=== PATIENT | male | born 1940 | race Caucasian/White ===

== ENCOUNTER 2024-02-20 11:19 | Outpatient (CLI) | payer MEDICARE, OTHER, SELFPAY ==
[2024-02-20 11:27] VITALS: BP 114/81; PULSE 67; RESP 20; TEMP 36.7; O2SAT 95
[2024-02-20 11:53] VITALS: PULSE 72; RESP 11; O2SAT 98
--- NOTE | 2024-02-20 11:58 | PDOC.PAIN ---
Date of service: 02/20/24 Time of Service: 11:58 Pain Managment Procedure Note Procedure Note Procedure Note: PROCEDURE NOTE Right Lumbar Medial Branch Blocks Date of Service: February 20, 2024 Patient: JB BARRERA Provider: Yolanda Shultz DO, MPH JB BARRERA has been [facility] to [facility] for lumbar medial branch blocks. 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 AJ was interviewed and the medical records were reviewed. There were no medical, pharmacologic, radiographic or other structural contraindications to attempting fluoroscopically guided local anesthetic lumbar medial branch blocks. Risks and potential side effects were discussed. I also discussed the potential benefit(s) of the procedure with JB, and voiced concerns were addressed. After JB was completely informed about the procedure, the printed consent form was signed. A standard time-out procedure was performed. JB was placed in the prone position on the fluoroscopy table. Automated blood pressure cuff and pulse oximeter were applied. The skin entry points for approaching the anatomic target points of the segmental medial branches of right L3,L4,L5 were identified with fluoroscopy and marked. The skin at the target site area was thoroughly prepared with Chlorhexadine. The skin was then draped. Next, a 25 gauge 3.5 spinal needle was placed under fluoroscopic guidance down on to the target point (the articular pillar) for each respective segmental medial branch. Position was confirmed in A/P and lateral views. Aspiration revealed no blood or clear fluid. Next, 0.25ml of omnipaque 240 was injected at each level. No contrast following a vascular or neural pattern was visualized under continuous fluoroscopy. Next, 0.25 ml of preservative-free 0.5% bupivicaine was injected at each level. There was no unusual discomfort expressed by JB. The needles were withdrawn without difficulty. (49 mls of Omnipaque was wasted) JB was observed and was without hemodynamic, neurologic, or allergic reactions.? Fluoroscopic images were digitally archived. Provacative testing using the Modified Lechuga's facet loading test- Right Side Directly before the block VAS (0-10) = 5/10 Five minutes after the block VAS (0-10) = 2/10 Percentage relief obtained with this diagnostic block 80% Any improved physical functioning directly after the blocks? Able to bend and move with much less pain. Follow up plans and appointments were discussed with JB. JB was instructed to keep careful note of how the usual pain was modified by these injections. Specifically, to keep a pain diary for the next 4 hours using a numeric pain scale of 0-10 and report these results. Post procedure instruction was given as documented in the nursing documentation and having met discharge criteria, the patient was [facility]. Based on the medial branches blocked today, if they patient has adequate relief and we are able to proceed to radiofrequency ablation, the treatment should result in the denervation of the right L4-L5 and L5-S1 facet joints. We would expect to denervate a total of 2 facets during the radiofrequency ablation. COMMENTS: No apparent complications. Post-procedure pain: VAS= 2/10 JB will call back with 0-4 hour post-procedure pain scores. I personally performed the entire procedure. YOLANDA SHULTZ DO, MPH ABPM&R-subspecialty board certification in Pain Medicine [facility] [facility]
[2024-02-20 11:59] VITALS: BP 118/80; PULSE 73; RESP 14; O2SAT 98
[2024-02-20] MEDS: Omnipaque 240 MG/ML 50 ML BTL IJ (12:08)
[2024-02-20] MEDS: Nerve Block Tray 1 EACH MC (12:09)
[2024-02-20] MEDS: Bupivacaine 0.5% Pres-Free 10 ML VIAL IJ (12:09)
--- NOTE | 2024-02-20 12:45 | DI.RAD_ITS ---
Exam(s) XR PAIN CLINIC LUMBAR SP 2V EXAM: XR PAIN CLINIC LUMBAR SP 2V CLINICAL HISTORY: Dx: Lumbar Spondylosis TECHNIQUE: 2D and realtime digital imaging was performed. CONTRAST MATERIAL: Refer to procedure report. COMPARISON: No exams were available for comparison FINDINGS: Fluoroscopy was provided for Dr. Shultz during the performance of a lumbar medial branch block. Rosalio rivera refer to the procedure report for complete details. Ka,r=6.92 mGy IMPRESSION: RADIATION DOSE DELIVERED: 0.0 0.0 0
== END 2024-02-20 11:20 | disposition home or self-care (01) ==
LOC: PC 11:21
PROVIDERS: PCP Thoracic Surgery (Cardiothoracic Vascular Surgery); Visit Provider Preventive Medicine Occupational Medicine
DX: M54.50 Low back pain, unspecified (principal); M47.816 Spondylosis without myelopathy or radiculopathy, lumbar region
CPT/HCPCS: 64493; 64494; 72100; J0665; Q9967

== ENCOUNTER 2024-03-05 11:21 | Outpatient (CLI) | payer MEDICARE, OTHER, SELFPAY ==
--- NOTE | 2024-03-05 06:00 | DI.RAD_ITS ---
Exam(s) XR PAIN CLINIC LUMBAR SP 2V EXAM: XR PAIN CLINIC LUMBAR SP 2V CLINICAL HISTORY: DX: Lumbar spondylosis. TECHNIQUE: Fluoroscopy was provided for the referring physician for guidance with performing pain cl inic injection procedure. COMPARISON: No exams were available for comparison FINDINGS: Please see procedure note for details. Fluoro time: 25.2 seconds RADIATION DOSE DELIVERED: Jose Luisr=6.64 mGy
[2024-03-05 11:27] VITALS: BP 107/86; PULSE 75; RESP 20; TEMP 36.7; O2SAT 98
--- NOTE | 2024-03-05 11:58 | PDOC.PAIN_ITS ---
Date of service: 03/05/24 Time of Service: 11:58 Pain Managment Procedure Note Procedure Note Procedure Note: PROCEDURE NOTE Right Lumbar Medial Branch Blocks Date of Service: March 05, 2024 Patient: JB BARRERA Provider: Lewis Shultz DO, MPH JB BARRERA has been referred to the [facility] for lumbar medial branch blocks. 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 was interviewed and the medical records were reviewed. There were no medical, pharmacologic, radiographic or other structural contraindications to attempting fluoroscopically guided local anesthetic lumbar medial branch blocks. Risks and potential side effects were discussed. I also discussed the potential benefit(s) of the procedure with JB, and voiced concerns were addressed. After JB was completely informed about the procedure, the printed consent form was signed. A standard time-out procedure was performed. JB was placed in the prone position on the fluoroscopy table. Automated blood pressure cuff and pulse oximeter were applied. The skin entry points for approaching the anatomic target points of the segmental medial branches of right L3,L4,L5 were identified with fluoroscopy and marked. The skin at the target site area was thoroughly prepared with Chlorhexadine. The skin was then draped. Next, a 25 gauge 3.5 spinal needle was placed under fluoroscopic guidance down on to the target point (the articular pillar) for each respective segmental medial branch. Position was confirmed in A/P and lateral views. Aspiration revealed no blood or clear fluid. Next, 0.25ml of omnipaque 240 was injected at each level. No contrast following a vascular or neural pattern was visualized under continuous fluoroscopy. Next, 0.25 ml of preservative-free 0.5% bupivicaine was injected at each level. There was no unusual discomfort e xpressed by JB. The needles were withdrawn without difficulty. (49 mls of Omnipaque was wasted) JB was observed and was without hemodynamic, neurologic, or allergic reactions.? Fluoroscopic images were digitally archived. Provacative testing using the Modified Lechuga's facet loading test- Right Side Directly before the block VAS (0-10) = 6/10 Five minutes after the block VAS (0-10) = 2/10 Percentage relief obtained with this diagnostic block 80% Any improved physical functioning directly after the blocks? Able to move his back with ease Follow up plans and appointments were discussed with JB. JB was instructed to keep careful note of how the usual pain was modified by these injections. Specifically, to keep a pain diary for the next 4 hours using a numeric pain scale of 0-10 and report these results. Post procedure instruction was given as documented in the nursing documentation and having met discharge criteria, the patient was [facility] from the [facility]. Based on the medial branches blocked today, if they patient has adequate relief and we are able to proceed to radiofrequency ablation, the treatment should result in the denervation of the right L4-L5 and L5-S1 facet joints. We would expect to denervate a total of 2 facets during the radiofrequency ablation. COMMENTS: No apparent complications. Post-procedure pain: VAS= 2/10 JB will call back with 0-4 hour post-procedure pain scores. I personally performed the entire procedure. LEWIS SHULTZ DO, MPH ABPM&R-subspecialty board certification in Pain Medicine [facility] [facility]
[2024-03-05] MEDS: Omnipaque 240 MG/ML 50 ML BTL IJ (11:59)
[2024-03-05] MEDS: Nerve Block Tray 1 EACH MC (12:00)
[2024-03-05] MEDS: Bupivacaine 0.5% Pres-Free 10 ML VIAL IJ (12:00)
[2024-03-05 12:01] VITALS: BP 174/94; PULSE 81; RESP 18; O2SAT 97
== END 2024-03-05 11:22 | disposition home or self-care (01) ==
LOC: PC 11:22
PROVIDERS: PCP Thoracic Surgery (Cardiothoracic Vascular Surgery); Visit Provider Preventive Medicine Occupational Medicine
DX: M47.816 Spondylosis without myelopathy or radiculopathy, lumbar region (principal)
CPT/HCPCS: 64493; 64494; 72100; J0665; Q9967

== ENCOUNTER 2024-04-24 10:54 | Outpatient (CLI) | payer MEDICARE, OTHER, SELFPAY ==
[2024-04-24] VITALS (16 sets, daily range): BP systolic 134–175; BP diastolic 72–110; PULSE 63–70; RESP 8–18; TEMP 36.7; O2SAT 95–99
[2024-04-24] MEDS: fentaNYL 100 MCG/2 ML VIAL IVP (12:35)
[2024-04-24] MEDS: Midazolam 2 MG/2 ML VIAL IVP (12:35)
[2024-04-24] MEDS: Lactated Ringers 500 ML 80 ML IV (12:40)
--- NOTE | 2024-04-24 13:01 | DI.RAD_ITS ---
Exam(s) XR PAIN CLINIC LUMBAR SP 2V EXAM: XR PAIN CLINIC LUMBAR SP 2V CLINICAL HISTORY: DX: Lumbar Spondylosis. TECHNIQUE: Fluoroscopy was provided for the referring physician for guidance with performing pain cl inic injection procedure. COMPARISON: No exams were available for comparison FINDINGS: Please see procedure note for details. Fluoro time: 32.3 seconds RADIATION DOSE DELIVERED: paula Amaya=9.28 mGy
[2024-04-24] MEDS: Nerve Block Tray 1 EACH MC (13:06)
[2024-04-24] MEDS: Lidocaine 2% Multi-Dose 20 ML VIAL IJ (13:06)
[2024-04-24] MEDS: methylPREDNISolone ACETATE 40 MG/ML VIAL IJ (13:07)
[2024-04-24] MEDS: Bupivacaine 0.5% Pres-Free 10 ML VIAL IJ (13:07)
--- NOTE | 2024-04-24 13:20 | PDOC.PAIN ---
Date of service: 04/24/24 Time of Service: 13:20 Pain Managment Procedure Note Procedure Note Procedure Note: PROCEDURE NOTE RIGHT LUMBAR RADIOFREQUENCY ABLATION Date of Service: April 24, 2024 Patient:JB MA? Provider:? Yolanda Shultz DO, MPH JB BARRERA has been [facility] to the [facility] for Right Lumbar Radiofrequency Ablation with the [employer] Machine.? 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 AJwas interviewed and the medical record was reviewed.? There were no medical, pharmacologic, radiographic or other structural contraindications to attempting fluoroscopically guided RIGHT Lumbar Radiofrequency Ablation.?Risks and expected side effects as well as potential benefit of the procedure were reviewed with JB, and the patient's voiced concerns were addressed.? The printed consent form was signed.? Standard time-out procedure was performed. JB was brought into the fluoroscopy suite and positioned into the prone position on the fluoroscopy table and allowed to adjust to a position of comfort. A grounding pad was placed on the left abdomen. The sterile field was prepared using chlorhexidine preparation of the skin and sterile draping. Local anesthesia superficial and deep was provided by local infiltration of 2% lidocaine. A 17g 100 mm radiofrequency introducer needle was placed to the planned anatomic targets guided with intermittent fluoroscopy with a perpendicular approach to terminally place at the junction of the superior articular process and the transverse process of the right L4, L5, the base of the sacral ala on the right for the L5 medial branch nerve and the area between base of the sacral ala to the S1 foramen on the right. The stylets were removed and radiofrequency probes with a 4mm active tip were then inserted. Needle tip position of the probes was verified in the AP, oblique, and lateral views. At each site, the medial branch nerve was stimulated at 2 Hz to a maximum 1-2 volts determined to finalize safe needle and electrode placement. The patient was awake and responsive during this portion of the procedure. Each target was anesthetized with 1-2 mL of 2 % Lidocaine for anesthesia for lesioning and then each target was lesioned at 80 degrees Celsius for 2 minutes and 30 seconds. Tissue impedances were noted to be between 250 and 500 Ohms. After the ablations, I injected 1/4 cc of Depomedrol (40mg/cc) followed by 1 cc of 0.5% Bupivacaine. There was no unusual discomfort expressed by JB. The needles were withdrawn without difficulty and bandages placed over the needle placement sites, the patient was observed and was without hemodynamic, neurologic, or allergic reactions. Fluoroscopic images were digitally archived. POST PROCEDURE EVALUATION: IMPRESSION: 1. Summary of procedure. Medication given is documented in the MAR. 2. Follow up plan: JB to contact [facility] as needed.?This procedure may be repeated if the patient achieves at least 50% improvement in pain/function for at least 6 months. 3. Estimated Blood Loss: <5 mls 4. Fluoroscopy time: Documented in the EMR. Follow up plans and appointments were discussed with the JB. Post procedure instruction was given as documented in nursing documentation and having met discharge criteria, JB was discharged from the [facility]. COMMENTS: No apparent complications. Post-procedure pain: VAS= 2/10. I personally completed the entire procedure. YOLANDA SHULTZ DO, MPH ABPM&R - Subspecialty board certification in Pain Medicine [facility] [facility]
== END 2024-04-24 10:55 | disposition home or self-care (01) ==
LOC: PC 10:54
PROVIDERS: PCP Thoracic Surgery (Cardiothoracic Vascular Surgery); Visit Provider Preventive Medicine Occupational Medicine
DX: M47.817 Spondylosis without myelopathy or radiculopathy, lumbosacral region (principal); M54.50 Low back pain, unspecified
CPT/HCPCS: 64635; 64636; 72100; J0665; J1010; J2003; J2250; J3010